=== PATIENT | female | born 1980 ===

== ENCOUNTER 2022-09-04 06:06 | Day surgery (SDC) | payer MEDICARE, OTHER ==
[~2022-09-04] VITALS: Ht 149.9 cm; Wt 80.5 kg
[2022-09-04] VITALS (8 sets, daily range): BP systolic 115–135; BP diastolic 75–89
[~2022-09-04 06:06] MED LIST: AMPHETAMINE PO; CLONIDINE PO; DEXTROAMPHETAMINE PO; LEVSOD25 PO; VENL150ER PO
--- NOTE | 2022-09-04 07:03 | NUR ---
THE PATIENT IS MENTLY CHALGENED AND IS NOT COOPERTIVE, DOCTOR ORDERED 2 MG OF VERSAD. Ambulatory in Day Surgery[facility]ungs clear T/O to Auscultation. Patient confirms NPO status and agrees with scheduled surgery. Pre-Op teaching done. Pt verbalizes understanding. Patient States Post-Procedure ride home has been arranged.
--- NOTE | 2022-09-04 08:07 | NUR ---
09/04/22 0807 Carlos Enrique Delgadillo MIRENA IMPLANT EXP 02/[address] JONES
--- NOTE | 2022-09-04 09:08 | NUR ---
Patient up to Ambulate independently. Gait steady. Discharge instructions reviewed with patient. Patient verbalizes understanding. Copy given to patient to take home. Patient States Post-Procedure ride home has been arranged. Discharged via wheelchair to private car for ride home. ALL BELONGINGS RETURNED TO PATIENT.
[2022-09-06 15:09] LABS: HPV 16 Negative (Negative); HPV 18 Negative (Negative); HPV OTHER HR TYPES Negative (Negative)
== END 2022-09-04 22:47 | disposition home or self-care (01) ==
LOC: ORSCMMR 06:06 → ORD 07:30 → ORSCMMR 22:47
PROVIDERS: Obstetrics & Gynecology
PROC: 8E0UXY7 Examination of Female Reproductive System (ICD-10-PCS; principal; 2022-09-04 07:30)
PROC: 0U2DXHZ Change Contraceptive Device in Uterus and Cervix, External Approach (ICD-10-PCS; principal; 2022-09-04 07:30)
DX: N92.0 Excessive and frequent menstruation with regular cycle (principal); Z01.419 Encounter for gynecological examination (general) (routine) without abnormal findings; Q90.0 Trisomy 21, nonmosaicism (meiotic nondisjunction); G47.33 Obstructive sleep apnea (adult) (pediatric); E03.9 Hypothyroidism, unspecified; Z79.899 Other long term (current) drug therapy; F42.9 Obsessive-compulsive disorder, unspecified; F98.8 Other specified behavioral and emotional disorders with onset usually occurring in childhood and adolescence; E66.9 Obesity, unspecified; Z68.35 Body mass index [BMI] 35.0-35.9, adult
CPT/HCPCS: 84703; 87624; G0145; J2250; J2704; J3010; J7120; J7298